=== PATIENT | female | born 1975 | race Hispanic/Latino ===

== ENCOUNTER 2017-05-25 09:15 | Day surgery (SDC) | payer BC, OTHER ==
[2017-05-25 09:25] VITALS: BMI 24.3
[2017-05-25 09:56] LABS: BASO # 0.1 K/uL (0.0-0.2); EOS # 0.2 K/uL (0.0-0.7); EOS % 3.4 % (0.0-4.0); LYMPH # 2.5 K/uL (1.0-4.3); LYMPH % 39.6 % (20.0-40.0); MEAN CELL VOLUME 94.6 fl (81.0-99.0); MEAN CORPUSCULAR HEMOGLOBIN 32.4 pg (27.0-31.0); MEAN CORPUSCULAR HGB CONC 34.2 g/dL (33.0-37.0); MEAN PLATELET VOLUME 8.1 fl (7.2-11.7); MONO # 0.6 K/uL (0.0-0.8); MONO % 9.1 % (0.0-10.0); NEUT % 46.9 % (50.0-75.0); NRBC % 0.1 % (0.0-0.0); RED CELL DISTRIBUTION WIDTH 12.5 % (11.5-14.5); WHITE BLOOD COUNT 6.4 K/uL (4.8-10.8)
[2017-05-25 10:17] VITALS: RESP 18
[2017-05-25] MEDS ORDERED: ePHEDrine 50 mg/ml Inj ONE ×2 (11:25→13:11)
[2017-05-25] MEDS ORDERED: Rocuronium 10 mg/ml (5 ml) ONE (11:25)
[2017-05-25] MEDS ORDERED: Propofol 10 mg/ml Inj (20 ML) ONE (11:25)
[2017-05-25] MEDS ORDERED: Midazolam 2 MG/2 ML VIAL ONE (11:25)
[2017-05-25] MEDS ORDERED: Succinylcholine 200 mg/10 ml Inj IV ONE (11:25)
[2017-05-25] MEDS ORDERED: Bupivacaine 0.5% Inj(30mL) ONE (12:11)
[2017-05-25] MEDS ORDERED: Lactated Ringer's 1,000 ML IV ONE ×3 (12:30→16:00)
[2017-05-25] MEDS ORDERED: Desflurane Inhalation Anesthetic Liq (240 ml) ONE (12:53)
[2017-05-25] MEDS ORDERED: Dexamethasone 4 mg/1 ml ONE (12:53)
[2017-05-25] MEDS ORDERED: Silver Nitrate Topical - Stick ONE (13:47)
[2017-05-25] MEDS ORDERED: Lactated Ringer's 1,000 ML IV SCH (14:07)
[2017-05-25] MEDS ORDERED: HYDROmorphone 0.5 mg/0.5 ml ISec IVP PRN ×2 (14:07→14:57)
[2017-05-25] MEDS ORDERED: HYDROmorphone 0.5 mg/0.5 ml ISec ONE (14:11)
--- NOTE | 2017-05-25 14:20 | PCM.SURG1 ---
<Yannick Evans - Last Filed: 05/25/17 14:17> Surgeon's Initial Post Op Note - Surgeon's Notes Surgeon: Dr. Townsend Shredder Operator: Yannick Alex PGy2, Klarissa GLASER Type of Anesthesia: General Endo Pre-Operative Diagnosis: Endometriosis Operative Findings: Endometriosis Post-Operative Diagnosis: Same Operation Performed: Robotic laparoscopic destruction on endometriosis Specimen/Specimens Removed: endometrioma Estimated Blood Loss: EBL {In ML}: 10 Blood Products Given: N/A Drains Used: No Drains Post-Op Condition: Good Date of Surgery/Procedure: 05/25/17 Time of Surgery/Procedure: 14:19 <Adam Townsend - Last Filed: 06/17/17 10:08> Surgeon's Initial Post Op Note - Surgeon's Notes Pre-Operative Diagnosis: pelvic pain ,dysmenorrhea , dyspareunia , abdominal pain Operative Findings: endometriosis stage 3 with pelvic sidewall, ovarian and anterior rectal involvement Operation Performed: cystoscopy , bilateral ureteal stenting with injection of dye bilaterally , excision of endometriosis, bilateral ureterolysis Specimen/Specimens Removed: multiple samples sent to pathology
--- NOTE | 2017-05-25 14:22 | CP.SDSHP ---
Same Day Surgery H & P - History Proposed Procedure: Robotic endometrioma removal, cystoscope Pre-Op Diagnosis: Endometriosis , pelvic pain - Allergies Allergies: Allergies Sulfa (Sulfonamide Antibiotics) Allergy (Verified 05/25/17 09:26) RASH hives - Physical Exam General Appearance: NAD Vital Signs: Vital Signs 05/25/17 05/25/17 10:15 10:22 Temperature 98.6 F Pulse Rate 71 71 Respiratory 18 Rate Blood Pressure 104/70 O2 Sat by Pulse 100 Oximetry Mental Status: Alert & Oriented x3 Neuro: WNL Heart: WNL Lungs: WNL GI: WNL - {Optional Preform as Required} Breast: WNL Abdomen: WNL Integument: WNL ROCK CLIMBING INSTRUCTOR: WNL - Impression Impression: Endometriosis - Date & Time Date: 05/25/17 Time: 12:00 Short Stay Discharge - Short Stay Discharge Admitting Diagnosis/Reason for Visit: N80.0 Disposition: HOME/ ROUTINE Referrals: Adam Townsend [Primary Care Provider] - Instructions: Endometriosis (DC) Additional Instructions (Diet, Activity): -f/u with Dr. Townsend in 1-2 weeks. -No heavy lifting for 1 month -No sex for 1 month -Ok to take shower tomorrow. Ok to remove Dressing. Keep glue on. No bathing or swimming for 2 weeks. -Take pain med as needed.
[2017-05-25] MEDS: HYDROmorphone 0.5 mg/0.5 ml ISec IVP PRN ×3 (14:30→14:50)
[2017-05-25] MEDS ORDERED: Oxycodone/Acetaminophen 5/325 mg Tab PO PRN (14:54)
[2017-05-25 19:17] VITALS: BP 109/70; PULSE 88; TEMP 98.1; O2SAT 98
--- NOTE | 2017-05-27 08:47 | PCM.OP ---
Operative Report - Operative Report Date of Surgery/Procedure: 05/25/17 Time of Surgery/Procedure: 13:00 Surgeon: Dr. Schulz Maintenance And Operations Supervisor: Dr. Townsend Anesthesia/Sedation: Dr. Blanc/General Pre-Operative Diagnosis: Abdominal pain and endometriosis Post-Operative Diagnosis: Endometriosis with involvement of the rectum Indication for Surgery: Rectal endometriosis Operative Findings: rectal endometriosis Procedure/Operation Description: 1-Excision sariah-rectal endometriosis. Brief History: This 42 year old woman had already been explored by Dr. Townsend when he encountered a lesion on the rectum. Intraoperative consultation was requested from general surgery. Description of the Procedure: Dr. townsend had already initiated the robotic procedure when a lesion on the rectum was encountered ( separate dication Dr. Townsend). After taking control of the robotic console using blunt and sharp dissection with the aid of electrocautery the lesion was circumferentially incised. The lesion was lifted from the perirectal wall with meticulous attention to hemostasis. The lesion was completely excised en-bloc, and after being appropriately marked was sent to pathology as a separate specimen. The rectal wall was examined and hemostasis was deemed adeqaute. The operation was then again turned over to Dr. Townsend (separate dictation Dr. Townsend). Estimated Blood Loss: 5 cc Blood Replaced: none Sponge/Instrument Count: correct Complications: none Specimen: sariah-rectal endometriosis Discharge & Condition: stable
--- NOTE | 2017-07-07 13:21 | OP ---
PROCEDURE DATE: 05/25/2017 SURGEON: Dr. Adam Townsend. SECURITIES LENDING TRADER: Dr. Christian Schulz. PREOPERATIVE DIAGNOSES: Dysmenorrhea, dyspareunia, rule out endometriosis, and bladder pain. POSTOPERATIVE DIAGNOSES: Dysmenorrhea, dyspareunia, rule out endometriosis, bladder pain plus pelvic endometriosis. PROCEDURE PERFORMED: Cystoscopy, bilateral ureteral catheterization with injection of dye, laparoscopy robotic, excision of endometriosis, bilateral ureterolysis and to be dictated separately by Dr. Schulz from general surgery an excision of endometriosis from the rectum. COMPLICATIONS: None. ESTIMATED BLOOD LOSS: Minimal. SAMPLES: Anterior bladder endometriosis, left periureteral endometriosis, posterior cervical endometriosis and 2 samples, anterior rectal endometriosis and right periureteral endometriosis. INDICATION FOR THE PROCEDURE: This patient is a 42-year-old with a history of dysmenorrhea, dyspareunia, pelvic pain, and bladder pain who was seen and evaluated upon examination. She had clear clinical signs of direct pain on examination. She was counseled with regards to the risks and benefits of the procedure and an increased risks secondary to surgery for endometriosis, including bowel and bladder injury and ureteral injury. She also understood the necessity of the injection of ureteral catheterization and injection of dye to identify the ureters during the robotic procedure. She signed a consent and she was taken to the OR. DESCRIPTION OF PROCEDURE: After adequate anesthesia was obtained, the patient was placed in the dorsal lithotomy position. She was extensively padded in every area prone to pressure and prepped and draped in the usual standard way. At this point, a time-out was taken according to the hospital policy and the procedure was started after the surgeon was scrubbed and gowned. The first part involved the cystoscopy. A cystoscope was inserted into the bladder under direct vision. Sutton cystoscopy was performed and attention was paid to both ureteral orifices, which were in the normal anatomical position. The left ureteral orifice was catheterized with a [place] open-ended ureteral catheter. A solution of ICG was then injected for a total of 5 mL into the left ureter after the ureteral catheter was advanced into the distal ureter. The ureteral catheter was then removed. Attention was paid to the right ureteral orifice. At this point, ureteral catheter was advanced to the level of the right distal ureter and an additional 4 mL of IC Green were injected in the right ureter. The ureteral catheter was then removed. The bladder was inspected and noted to be free of tumor, stones, or bleeding sources. The cystoscope was then removed and a 16-Gu[place]alan Vasquez catheter was placed. At this point, attention was in the vaginal area, where a speculum was placed in the vagina. Inferior lip of the cervix was grasped and under direct visualization, the cervix was dilated and a hysteroscope was inserted into the uterine cavity. The cavity appeared to be normal in size with no evidence of polyps and both tubal ostia were visualized. The cervical canal was also inspected, appeared to be in good condition. At this point, a uterine manipulator was placed in the uterus and attention was on the abdomen. An incision was made below the umbilicus and with a standard open laparoscopy technique, the fascia was incised and then the peritoneum and a trocar was bluntly inserted into the abdominal cavity. After proper insufflation, additional trocars were placed under direct visualization, left upper quadrant, right upper quadrant and left mid quadrant. At this point, the Dapt robot was brought onto the field and docked with extreme care. The instruments were inserted and the procedure started. Findings were as follows: There were 2 small fibroids on the uterus, which appeared to have no influence on the patient's symptoms and therefore were left in place. There were multiple implants of endometriosis; more specifically, there were implants in the left pelvic side wall, left ovarian fossa, posterior cervix, anterior rectal in proximity of the rectovaginal septum and right pelvic side wall and on the left ovary. At this point, attention was on the left side where the small implant of endometriosis in the left ovary was ablated in order to not to damage the ovary and to preserve ovarian function. At this point, attention was on the left pelvic side wall where after identifying the ureter utilizing fluorescent technology, the retroperitoneum was entered by making an incision in the peritoneum and the retroperitoneal space was entered. A progressive dissection was performed with extreme care, lateralized the ureter with great care to avoiding all the vessels. After the ureterolysis was performed, a swath of peritoneum containing endometriosis was excised and sent to pathology. Additionally, a lesion in the left ovarian fossa was identified. The uterine artery was identified. The peritoneum was elevated and exercised with an area of endometriosis which was also sent to pathology. At this point, attention was in the posterior cervical area where a progressive excision was performed with great care excising an area containing endometriosis in the posterior cervix. The rectovaginal area containing area of endometriosis which was excised by Dr. Christian Schulz and will be dictated separately. Attention was now on the right pelvic side wall where after identifying the ureter, again utilizing fluorescent technology on and off, the retroperitoneal space was entered and a progressive dissection was performed with extreme care; lateralizing the ureter and then progressively dissecting it off, and an area of endometriosis containing peritoneum was also exercised and sent to pathology. All of this was done with preserving also the both nerves and vessels. At this point, the pelvis was irrigated. It was checked for hemostasis that appeared to be excellent. The robot was undocked. The instruments were removed. The abdomen desufflated, and the incision repaired in layers with 0 PDS for the fascia and 4-0 Monocryl for the skin. Attention was also on the vaginal area where the instruments were removed, and it was checked for hemostasis that appeared to be excellent. At this point, the patient was woken up and taken to recovery room. At the end of the procedure, all tapes and instruments counts were correct. Adam Townsend MD
== END 2017-05-25 19:15 | disposition home or self-care (01) ==
LOC: H.OPSURG 09:15
PROVIDERS: ATTEND Obstetrics & Gynecology Reproductive Endocrinology
DX: N80.4 Endometriosis of rectovaginal septum and vagina (principal); N80.0 Endometriosis of uterus; E03.9 Hypothyroidism, unspecified; N94.6 Dysmenorrhea, unspecified; N94.19 Other specified dyspareunia
CPT/HCPCS: 36415; 51715; 52005; 58662; 58999; 85025; 86850; 86900; 88305; C1729; J0330; J0690; J1100; J1170; J2001; J2250; J2405; J2704; J3010; J7030; J7040; J7120